=== PATIENT | male | born 1950 | race Caucasian/White ===

== ENCOUNTER 2019-05-02 18:26 | Emergency (ER) | payer MEDICARE ==
[~2019-05-02] VITALS: Ht 177.8 cm; Wt 104.3 kg
--- OUTSIDE RECORDS SUMMARY | 2019-05-02 18:29 | XMS REPORT | Summary of Care ---
Author Author [facility] - Health Organization [facility] - Health Address Unknown Phone Unavailable Care Team Providers Care Finish Photographer Name Role Phone Juan Francisco Gibbs MD PCP Encounter Details Care Team Description Date Type Department Doctor Unassigned, [place] [address] [place] [id number] 03/31/2019 Orders Only [facility] [address] [place] [address] Allergies Comments Active Allergy Reactions Severity Noted Date Penicillins Dizziness 12/08/2018 documented as of this encounter (statuses as of 03/31/2019) Medications End Date Status Medication Sig Dispensed Refills Start Date Active lovastatin 40 mg Take 1 tablet 90 tablet 1 tabletIndications: Other by mouth at 9 hyperlipidemia bedtime. Active omeprazole 40 mg Take 1 90 capsule 1 capsuleIndications: capsule by 9 Gastroesophageal reflux mouth daily. disease without esophagitis Active quinapril 20 mg Take 1 tablet 90 tablet 1 tabletIndications: by mouth at 9 Essential hypertension bedtime. Active tamsulosin 0.4 mg 24 hr Take 1 90 capsule 1 capsuleIndications: capsule by 9 Benign prostatic mouth daily. hyperplasia, unspecified whether lower urinary tract symptoms present Active sildenafil 100 mg Take 1 tablet 30 tablet 1 tabletIndications: by mouth 9 Erectile dysfunction, every 24 unspecified erectile (twenty-four) dysfunction type hours as needed (sexual intercourse). Active peg-electrolyte soln Take as 4000 mL 0 236-22.74-6.74 -5.86 gram directed 0 solution before colonoscopy documented as of this encounter (statuses as of 03/31/2019) Active Problems Not on filedocumented as of this encounter (statuses as of 03/31/2019) Social History Date Tobacco Use Types Packs/Day Years Used Never Smoker Smokeless Tobacco: Never Used Drinks/Week oz/Week Comments Alcohol Use on the weekends Yes Alcohol Habits Answer Date Recorded How often do you have a drink containing alcohol? 2-4 times a month 03/31/2019 How many drinks containing alcohol do you have on Not asked a typical day when you are drinking? How often do you have six or more drinks on one Not asked occasion? Sex Assigned at Date Recorded Not on file Industry Job Start Date Occupation Not on file Not on file Not on file Travel End Travel History Travel Start No recent travel history available. documented as of this encounter Last Filed Vital Signs Not on filedocumented in this encounter Plan of Treatment Care Team Description [place] [address] [facility] [address] [place] [address] [phone] 06/08/2019 Office Visit Internal Medicine Health Maintenance Due Date Last Done Comments HEPATITIS C (HCV) SCREEN 1950 DTaP,Tdap,and Td Vaccines 06/03/1959 (1 - Tdap) COLONOSCOPY 1998 Zoster Recombinant 1998 Vaccine (SHINGRIX) (1 of 2) Medicare Wellness Visit 2013 PNEUMOCOCCAL VACCINES 65+ 2013 (1 of 2 - PCV13) INFLUENZA VACCINE (#1) 2018 documented as of this encounter Procedures Comments Procedure Name Priority Date/Time Associated Diagnosis PATIENT QUESTIONNAIRE Routine 03/31/2019 12:[address] STENOGRAPHER documented in this encounter Results Not on filedocumented in this encounter Insurance Type Payer Benefit Subscriber ID Effective Phone Address Plan / Dates Group Medicare MEDICARE MEDICARE xxxxxxxxxxx 2013-P [phone] [address] resent [id number] [place] [id number] Medicare Supplement [facility] [id number] 2018-P [address] resent [id number] MEDICARE [place] SUPPLEMENT [place] [id number] documented as of this encounter
--- OUTSIDE RECORDS SUMMARY | 2019-05-02 18:29 | XMS REPORT | Summary of Care ---
Author Author [facility] - Health Organization [facility] - Health Address Unknown Phone Unavailable Care Team Providers Care Rn Outpatient Surgery Name Role Phone Juan Francisco Gibbs MD PCP Encounter Details Care Team Description Date [place] [address] [facility] [address] [place] [address] 03/18/2019 Patient Secure [facility] [place] [address] [facility] [place] [address] Allergies Comments Active Allergy Reactions Severity Noted Date Penicillins Dizziness 12/08/2018 documented as of this encounter (statuses as of 04/24/2019) Medications End Date Status Medication Sig Dispensed [...] dysfunction type hours as needed (sexual intercourse). documented as of this encounter (statuses as of 04/24/2019) Active Problems Problem Noted Date Colon cancer screening 04/01/2019 Overview: Added automatically from request for surgery [id number] Hx of colonic polyps 04/01/2019 Overview: Added automatically from request for surgery [id number] Chronic gastroesophageal reflux disease 04/01/2019 Overview: Added automatically from request for surgery [id number] documented as of this encounter (statuses as of 04/24/2019) Social History Date Tobacco Use Types Packs/Day Years Used Never Assessed Sex Assigned at Date Recorded Not on file Industry Job Start Date Occupation Not on file Not on file Not on file Travel End Travel History Travel Start No recent travel history available. documented as of this encounter Last Filed Vital Signs Not on filedocumented in this encounter Plan of Treatment Care Team Description Date Type Specialty GoTank watkins MD [address] [place] [address] [id number] Colon cancer screening 05/20/2019 Hospital Surgery Encounter Elisha Moser RN [address] [place] [address] 05/20/2019 Anesthesia Surgery Event Gou, Tank Card MD [address] [place] [address] [id number] COLONOSCOPY 05/20/2019 [place] [address] [facility] [address] [address] [phone] 06/08/2019 Office Visit Internal Medicine Health Maintenance Due Date Last Done Comments HEPATITIS C (HCV) SCREEN 1950 DTaP,Tdap,and Td Vaccines 06/03/1959 (1 - Tdap) COLONOSCOPY 1998 Zoster Recombinant 1998 Vaccine (SHINGRIX) (1 of 2) Medicare Wellness Visit 2013 PNEUMOCOCCAL VACCINES 65+ 2013 (1 of 2 - PCV13) INFLUENZA VACCINE (#1) 2018 documented as of this encounter Results Not on filedocumented in this encounter Insurance Type Payer Benefit Subscriber ID Effective Phone Address Plan / Dates Group Medicare MEDICARE MEDICARE xxxxxxxxxxx 2013-P [phone] [address] resent [id number] [place] [id number] Medicare Supplement [facility] [id number] 2018-P [address] [facility] resent [id number] MEDICARE [place] SUPPLEMENT [place] [id number] documented as of this encounter
--- OUTSIDE RECORDS SUMMARY | 2019-05-02 18:29 | XMS REPORT ---
Author Author [facility] Address Unknown Phone Unavailable Care Team Providers Care Technical Cable Jointer Name Role Phone Unavailable Unavailable Payers Payer Name Policy Type Policy Number Effective Date Expiration Date Problems This patient has no known problems. Allergies, Adverse Reactions, Alerts Allergy Name Allergy Type Status Severity Reaction(s) Onset Date Inactive Date Treating Clinician Comments Penicillins DA Active SV 2019-04-30 00:00:00 Penicillins DA Active SV 2019-04-29 00:00:00 lidocaine DA Active MO 2019-04-29 00:00:00 Penicillins DA Active SV 2012-07-10 00:00:00 lidocaine DA Active MO 2012-07-10 00:00:00 Medications This patient has no known medications. Results Test Description Test Time Test Comments Text Results Atomic Results Result Comments - XR FLUORO FOR SPINE INJ 2019-04-30 09:06:00 Patient Name: ARON BOUCHER Unit No: [id number] EXAMS: CPT CODE: [id number] XR FLUORO FOR SPINE INJ 97931 LUMBAR DISCOGRAM AND PLACEMENT OF INTRADISCAL STEROIDS REFERRING PHYSICIAN: PREOPERATIVE DIAGNOSIS: Degenerative lumbar disc disease. POSTOPERATIVE DIAGNOSIS: Lumbar degenerative disc disease 2. PROCEDURE PERFORMED: Fluoroscopically guided needle localization of the level L3-4, L5-S1 discs with provocative discography, placement of intradiscal steroids . FINDINGS: The level L3-4, L5-S1 discogram showed: a) Provocation was concordant L5- S1 for back pain indeterminate low-pressure disc L3-4 b) L3-4 disc with annular degeneration, L5-S1 disc with annular degeneration c) Injectate volume:4 ml, 1 cc Omnipaque dye, 10 mg Kenalog, 10 mg Ancef, 1 mL 0.75% Marcaine ANTIBIOTIC: Cefazolin IV and intradiscal ESTIMATED BLOOD LOSS:Minimal ANESTHESIA:(TIVA) Total intravenous anesthetic (patient intolerant to sedatives and hypnotics) COMPLICATIONS:None DETAILS OF PROCEDURE: After obtaining stable vital signs, informed consent and IV access, there were no laboratory, radiographic or other contraindications to proceeding. The patient received preoperative antibiotics and was taken to the fluoroscopy suite where the patient was placed in a prone position with all extremities padded and appropriate monitors placed. The patient was sterilely prepped and draped over the lumbosacral spine. Under fluoroscopic visualization the levels L3-4, L5-S1 discs were visualized and the insertion sites were marked for paramedian approaches. Lidocaine 1.5%, 2 ml, was infiltrated into the skin, subcutaneous tissue, and superficial musculature after which a 20 gauge spinal introducer needle was advanced to the level of the facets. A 25 gauge curved B-bevel needle was then passed through the [facility] NAME: ARON BOUCHER [address] [facility] PHYS: DOCUD - Chris Amaro MD [place], [place] [address] : 1950 AGE: 68 SEX: M LOC: [place] PHONE #: [phone] EXAM DATE: 04/30/2019 STATUS: REG [facility] FAX #: [phone] RAD #: [id number] D/C DT PAGE 1 Signed Report (CONTINUED) Patient Name: ARON BOUCHER Unit No: [id number] EXAMS: CPT CODE: [id number] XR FLUORO FOR SPINE INJ 37909 <Continued> introducer and advanced into the center of the disc. No paresthesias were elicited. Isovue 300 contrast was then injected with a manometric syringe to produce the discogram. Opening, symptomatic and peak pressures were recorded. Each disc was then injected with antibiotics and the symptomatic discs were also injected with triamcinolone/bupivacaine. The needles were removed and sterile Band-Aids were placed over the insertion sites. The patient was taken to the recovery room in stable condition. at 0906 Reported and signed by: Chris Amaro M.D. CC: Technologist: Jessica Gilbert(Patricia) Transcribed D/ (0906) Cathy.UVD [facility] NAME: ARON BOUCHER [address] [facility] PHYS: Chris Orlelana MD [place], [place] [address] : 1950 AGE: 68 SEX: M LOC: [place] PHONE #: [phone] EXAM DATE: 04/30/2019 STATUS: REG [facility] FAX #: [phone] RAD #: [id number] D/C DT PAGE 2 Signed Report Patient Name: ARON BOUCHER Unit No: [id number] EXAMS: CPT CODE: [id number] XR FLUORO FOR SPINE INJ 16322 <Continued> Orig Print D/T: S: 04/30/2019 (908) [facility] NAME: ARON BOUCHER [address] [facility] PHYS: Chris Orellana MD [place], [place] [address] : 1950 AGE: 68 SEX: M LOC: [place] PHONE #: [phone] EXAM DATE: 04/30/2019 STATUS: REG [facility] FAX #: [phone] RAD #: [id number] D/C DT PAGE 3 Signed Report - MRI L-SPINE W/O CONT 2019-04-15 23:14:00 Patient Name: ARON BOUCHER Unit No: [id number] EXAMS: CPT CODE: [id number] MRI L-SPINE W/O CONT [id number] MRI OF THE LUMBAR SPINE: DIAGNOSIS: 1. At L1-2, disc desiccation. No central canal stenosis. Moderate bilateral facet arthropathy. No foraminal stenosis. 2. At L2-3, disc desiccation. Mild central canal stenosis. Moderate bilateral facet arthropathy. Mild foraminal stenosis. 3. At L3-4, moderate disc degeneration. There is a 3 mm right posterior lateral and right foraminal disc protrusion which appears to slightly impinge the right L4 nerve root in the lateral gutter. Mild to moderate central canal stenosis. Mild bilateral facet arthropathy. Moderate to marked right foraminal stenosis mild left foraminal stenosis. 4. At L4-5, mild disc degeneration. 2 mm disc bulge. Mild to moderate central canal stenosis. Moderate to marked bilateral facet arthropathy. Moderate left foraminal mild right foraminal stenosis. 5. At L5-S1, moderate to marked disc degeneration. 3 mm disc protrusion. No central canal stenosis. Marked bilateral facet arthropathy. Moderate right foraminal and moderate to marked left foraminal stenosis. COMMENT: COMPARISON: No prior exams available. Sagittal T1, T2 and STIR and axial T1 and T2-weighted sequences are obtained of the lumbar spine. The lumbar vertebrae are within normal limits in signal. The findings are as above. The conus is in the expected location. at 2314 Reported and signed by: Trino Gibson MD CC: Chris Amaro MD Technologist: KATH RIBEIRO MRI Transcribed D/ (2313) JenniferG [facility] NAME: ARON BOUCHER [address] [facility] PHYS: Chris Orellana MD : 1950 AGE: 68 SEX: M [place] [address] LOC: Y.MRI PHONE #: [phone] EXAM DATE: 04/15/2019 STATUS: REG CLI FAX #: [phone] RAD #: [id number] D/C DT PAGE 1 Signed Report Patient Name: ARON BOUCHER Unit No: [id number] EXAMS: CPT CODE: [id number] MRI L-SPINE W/O CONT 43602 <Continued> Orig Print D/T: S: 04/15/2019 (2655) [facility] NAME: ARON BOUCHER [address] [facility] PHYS: Chris Orellana MD : 1950 AGE: 68 SEX: M [place] [address] LOC: Y.MRI PHONE #: [phone] EXAM DATE: 04/15/2019 STATUS: REG CLI FAX #: [phone] RAD #: [id number] D/C DT PAGE 2 Signed Report
[2019-05-02] MEDS ORDERED: OMEPRAZOLE40 MG (18:41)
[2019-05-02] MEDS ORDERED: SILDENAFIL CIT100 MG (18:41)
[2019-05-02] MEDS ORDERED: LOVASTATIN40 MG (18:41)
[2019-05-02] MEDS ORDERED: QUINAPRIL HCL20 MG (18:41)
[2019-05-02] MEDS ORDERED: HYDRALAZINE HCL 20 MG/ML VIAL IV NR (18:46)
[2019-05-02] MEDS ORDERED: ASPIRIN 81 MG CHEW TAB PO ONE (19:00)
[2019-05-02 19:22] LABS: BASOPHILS % 0.1 % (0.0-1.0); EOSINOPHILS % 0.3 % (0.0-6.0); HEMATOCRIT 44.9 % (38.2-49.6); HEMOGLOBIN 15.2 g/dL (14.0-18.0); LYMPHOCYTES # (AUTO) 2.3 (1.0-3.2); LYMPHOCYTES % 25.8 % (18.0-39.1); MEAN CORPUSCULAR HEMOGLOBIN 31.3 pg (28-32); MEAN CORPUSCULAR HGB CONC 33.9 g/dL (31-35); MEAN CORPUSCULAR VOLUME 92.4 fL (81-99); MONOCYTES % 11.1 % (4.4-11.3); NEUTROPHILS # (AUTO) 5.5 (2.1-6.9); NEUTROPHILS % 62.4 % (38.7-80.0); PLATELET COUNT 240 x10e3/uL (140-360); RED BLOOD COUNT 4.86 x10e6/uL (4.3-5.7); RED CELL DISTRIBUTION WIDTH 13.7 % (11.7-14.4)
[2019-05-02 19:30] LABS: INR 0.92; PROTHROMBIN TIME 12.9 seconds (11.9-14.5)
[2019-05-02 19:31] LABS: PARTIAL THROMBOPLASTIN TIME 25.4 seconds (23.8-35.5)
[2019-05-02 19:38] LABS: ALANINE AMINOTRANSFERASE 15 IU/L (0-55); ALBUMIN 4.1 g/dL (3.5-5.0); ALBUMIN/GLOBULIN RATIO 1.4 (0.8-2.0); ALKALINE PHOSPHATASE 59 IU/L (40-150); ANION GAP 10.6 mmol/L (8-16); BLOOD UREA NITROGEN 18 mg/dL (7-26); BUN/CREATININE RATIO 17 (6-25); CARBON DIOXIDE 27 mmol/L (22-29); CHLORIDE 104 mmol/L (98-107); CREATINE KINASE 140 IU/L (30-200); CREATININE, SERUM 1.07 mg/dL (0.72-1.25); EST GLOMERULAR FILTRATION RATE > 60 ML/MIN (60-); GLUCOSE 101 mg/dL (74-118); POTASSIUM 3.6 mmol/L (3.5-5.1); SODIUM 138 mmol/L (136-145)
[2019-05-02 19:45] LABS: CLARITY,URINE CLEAR (CLEAR); COLOR,URINE YELLOW (YELLOW); LEUKOCYTE ESTERASE ,URINE NEGATIVE (NEGATIVE); NITRITE,URINE NEGATIVE (NEGATIVE); PROTEIN,URINE DIPSTICK NEGATIVE (NEGATIVE)
--- NOTE | 2019-05-02 19:45 | Diagnostic Imaging Report ---
Examination: Single AP view of the chest. COMPARISON: None. INDICATION: High blood pressure DISCUSSION: The lungs are well inflated. No focal consolidation, pleural effusion, or pneumothorax. Tortuous thoracic aorta with atherosclerotic calcification. Cardiomediastinal contour and pulmonary vasculature are otherwise within normal limits when accounting for AP technique. No acute osseous abnormalities. IMPRESSION: 1. No acute cardiopulmonary abnormalities. Signed by: Dr. Caleb Reddy M.D. on 05/02/2019 7:43 PM
[2019-05-02 19:46] LABS: BILIRUBIN,URINE NEGATIVE (NEGATIVE); KETONES,URINE NEGATIVE (NEGATIVE); URINE UROBILINOGEN 0.2 mg/dL (0.2 - 1)
[2019-05-02 19:47] LABS: BACTERIA,URINE FEW /HPF; EPITHELIAL CELLS,URINE FEW /LPF
[2019-05-02 20:28] VITALS: BP 135/93
== END 2019-05-02 20:33 | disposition home or self-care (01) ==
LOC: ER 18:26
DX: I10 Essential (primary) hypertension (principal); R20.2 Paresthesia of skin; E78.5 Hyperlipidemia, unspecified; K21.9 Gastro-esophageal reflux disease without esophagitis; Z85.46 Personal history of malignant neoplasm of prostate; Z85.828 Personal history of other malignant neoplasm of skin
CPT/HCPCS: 36415; 71045; 80053; 81001; 82550; 82553; 84484; 85025; 85610; 85730; 99284; J0360